=== PATIENT | female | born 1970 | race Two or more races ===

== ENCOUNTER 2019-03-02 07:41 | Inpatient (IN) | payer MEDICAID ==
[~2019-03-02] VITALS: Ht 160 cm; Wt 105.3 kg
[2019-03-02] MEDS ORDERED: AMLO-512 PO (07:51)
[2019-03-02] MEDS ORDERED: SODIUM CHLORIDE 0.9% 1,000 ML IV ONE (08:16)
[2019-03-02] MEDS ORDERED: KETOROLAC TROMETHAMINE 30 MG/ML VIAL IVP ONE (08:30)
[2019-03-02] MEDS ORDERED: ONDANSETRON HCL 4 MG/2 ML VIAL IVP ONE ×2 (08:30→12:00)
[2019-03-02] MEDS ORDERED: BARIUM SULFATE 0.1% SUSPENSION 450 ML BOTTLE PO ONE (08:30)
[2019-03-02 08:36] LABS: BASOPHILS % (AUTO) 0.3 % (0.0-2.0); EOSINOPHILS % (AUTO) 0 % (1.0-6.0); HEMATOCRIT 44.1 % (36-46); LYMPHOCYTES # (AUTO) 0.4 K/uL (1.0-4.8); LYMPHOCYTES % (AUTO) 3.3 % (22.0-44.0); MEAN CORPUSCULAR HEMOGLOBIN 31.5 pg (26.0-34.0); MEAN CORPUSCULAR HGB CONC 33.9 G/dL (31.0-37.0); MEAN CORPUSCULAR VOLUME 93 fL (80-100); MONOCYTES # (AUTO) 0.5 K/uL (0.1-1.0); MONOCYTES % (AUTO) 4.1 % (2.0-9.0); NEUTROPHILS # (AUTO) 11.7 K/uL (1.8-7.7); PLATELET COUNT (AUTO) 217 K/uL (150-450); RED BLOOD CELL COUNT(AUTO) 4.75 MIL/uL (4.00-5.20); RED CELL DISTRIBUTION WIDTH 14.8 % (11.5-14.5)
[2019-03-02 08:38] LABS: NEUTROPHILS % (AUTO) 92.3 % (40.0-70.0)
[2019-03-02 08:42] LABS: ANION GAP 10 mmol/L (8-16); CALCIUM, TOTAL 10.2 mg/dL (8.8-10.5); CARBON DIOXIDE 25 mmol/L (22-29); CHLORIDE 101 mmol/L (98-107); CREATININE 0.95 mg/dL (0.60-1.30); GLOMERULAR FILTR. RATE CALC > 60 mL/min (>60); GLUCOSE,RANDOM 164 mg/dL (70-110); POTASSIUM 3.8 mmol/L (3.5-5.1); SODIUM SERUM 136 mmol/L (136-145); UREA NITROGEN, BLOOD 17 mg/dL (7-18)
[2019-03-02 08:48] LABS: ALANINE AMINOTRANSFERASE 43 U/L (12-78); ALBUMIN 4.2 g/dL (3.4-5.0); ALKALINE PHOSPHATASE 81 U/L (46-116); ASPARTATE AMINOTRANSFERASE 24 U/L (15-37); LIPASE 65 U/L (73-393); TOTAL PROTEIN, SERUM 7.7 g/dL (6.4-8.2)
[2019-03-02 08:52] LABS: APPEARANCE,URINE TURBID (CLEAR); GLUCOSE, URINE (UA) >=1000 mg/dL (NEGATIVE); KETONES,URINE 15 mg/dL (NEGATIVE); LEUKOCYTE ESTERASE ,URINE MODERATE (NEGATIVE); NITRATE,URINE POSITIVE (NEGATIVE); OCCULT BLOOD,URINE LARGE (NEGATIVE); PROTEIN,URINE SEE CONFIRM (NEGATIVE)
[2019-03-02 08:54] LABS: BILIRUBIN,URINE PRELIM. POSITIVE (NEGATIVE)
[2019-03-02 09:30] LABS: RBC,URINE >100 /HPF (0-2); SULFOSALICYLIC ACID,URINE 3+ (Negative)
[2019-03-02 09:31] LABS: BACTERIA,URINE None Seen /HPF (None Seen)
[2019-03-02] MEDS ORDERED: SODIUM CHLORIDE 0.9% 100 ML ONE (10:00)
[2019-03-02] MEDS ORDERED: IOVERSOL 350 MG/ML 100 ML VIAL ONE (10:00)
[2019-03-02] MEDS ORDERED: IOVERSOL 350 MG/ML 150 ML VIAL ONE (10:01)
[2019-03-02] MEDS ORDERED: TAMSULOSIN HCL 0.4 MG CAPSULE PO ONE (12:00)
[2019-03-02] MEDS ORDERED: MORPHINE SULFATE 4 MG/ML SYRINGE IVP ONE (12:00)
[2019-03-02] MEDS ORDERED: CefTRIAXone 1 GM/DEXTROSE 50 ML IV ONE (12:00)
[2019-03-02] MEDS ORDERED: SODIUM CHLORIDE 0.9% 250 ML IV ONE (12:04)
[2019-03-02] MEDS ORDERED: 0.9% SODIUM CHLORIDE 10 ML SYRINGE IVP PRN (13:15)
[2019-03-02] MEDS ORDERED: ONDANSETRON HCL 4 MG/2 ML VIAL IVP PRN ×2 (13:15→20:15)
[2019-03-02] MEDS ORDERED: ACETAMINOPHEN 325 MG TABLET PO PRN (13:15)
[2019-03-02 13:26] LABS: PROTHROMBIN TIME 10.3 SEC (9.4-11.6)
[2019-03-02 14:50] VITALS: BP 103/57
[2019-03-02] MEDS ORDERED: IOHEXOL 240 MG/ML 50 ML VIAL ONE (15:01)
[2019-03-02] MEDS ORDERED: LIDOCAINE/PF 1% 30 ML VIAL ONE (15:02)
[2019-03-02 19:57] VITALS: BP 113/56
[2019-03-02] MEDS ORDERED: IPRATROPIUM BROMIDE 0.5 MG/2.5 ML NEB SOLUTION NEB PRN (20:15)
[2019-03-02] MEDS ORDERED: MAGNESIUM HYDROXIDE SUSPENSION 30 ML UDCUP PO PRN (20:15)
[2019-03-02] MEDS ORDERED: ZOLPIDEM TARTRATE 5 MG TABLET PO PRN (20:15)
[2019-03-02] MEDS ORDERED: BISACODYL 10 MG RECTAL RECTAL SUPPOSITORY PR PRN (20:15)
[2019-03-02] MEDS ORDERED: ALBUTEROL SULFATE 2.5 MG/0.5 ML NEB SOLUTION NEB PRN (20:15)
[2019-03-02] MEDS: DOCUSATE SODIUM 100 MG CAPSULE PO SCH (20:56)
[2019-03-02] MEDS: HYDROCODONE/ACETAMINOPHEN 5-325 MG TABLET PO PRN (20:56)
[2019-03-02] MEDS: SODIUM CHLORIDE 0.9% 1,000 ML IV SCH (22:00)
[2019-03-02] MEDS: HEPARIN SODIUM,PORCINE 5,000 UNITS/ML VIAL SQ SCH (23:32)
[2019-03-03 00:29] VITALS: BP 124/70
[2019-03-03] MEDS: ACETAMINOPHEN 325 MG TABLET PO PRN ×4 (00:36→17:02)
[2019-03-03 03:50] VITALS: BP 126/78
[2019-03-03 06:07] LABS: CALCIUM, TOTAL 8.7 mg/dL (8.8-10.5); CREATININE 1.18 mg/dL (0.60-1.30); POTASSIUM 3.8 mmol/L (3.5-5.1)
[2019-03-03] MEDS: SODIUM CHLORIDE 0.9% 1,000 ML IV SCH ×3 (06:46→21:45)
[2019-03-03 06:55] LABS: BASOPHILS % (AUTO) 0.2 % (0.0-2.0); EOSINOPHILS % (AUTO) 0.1 % (1.0-6.0); HEMATOCRIT 39.7 % (36-46); HEMOGLOBIN 13.5 g/dL (12.0-16.0); LYMPHOCYTES # (AUTO) 0.8 K/uL (1.0-4.8); LYMPHOCYTES % (AUTO) 7.6 % (22.0-44.0); MEAN CORPUSCULAR HGB CONC 33.9 G/dL (31.0-37.0); MEAN CORPUSCULAR VOLUME 94 fL (80-100); MONOCYTES # (AUTO) 0.6 K/uL (0.1-1.0); MONOCYTES % (AUTO) 5.5 % (2.0-9.0); NEUTROPHILS # (AUTO) 9.3 K/uL (1.8-7.7); PLATELET COUNT (AUTO) 169 K/uL (150-450)
[2019-03-03 06:57] LABS: NEUTROPHILS % (AUTO) 86.6 % (40.0-70.0)
[2019-03-03 07:47] VITALS: BP 155/75
[2019-03-03] MEDS: HEPARIN SODIUM,PORCINE 5,000 UNITS/ML VIAL SQ SCH ×3 (08:00→22:48)
[2019-03-03] MEDS: MORPHINE SULFATE 2 MG/ML SYRINGE IVP PRN ×4 (08:13→22:48)
[2019-03-03] MEDS ORDERED: PANTOPRAZOLE SODIUM 40 MG/VIAL IVP SCH (09:00)
[2019-03-03] MEDS: DOCUSATE SODIUM 100 MG CAPSULE PO SCH ×2 (09:00→12:50)
[2019-03-03] MEDS ORDERED: LIDOCAINE/PF 1% 30 ML VIAL ONE (09:39)
[2019-03-03] MEDS ORDERED: IOHEXOL 240 MG/ML 50 ML VIAL ONE (09:41)
[2019-03-03] MEDS: CefTRIAXone 1 GM/DEXTROSE 50 ML IV SCH (10:00)
[2019-03-03] MEDS ORDERED: FentaNYL CITRATE-PF 100 MCG/2 ML VIAL ONE (10:25)
[2019-03-03] MEDS ORDERED: MIDAZOLAM HCL 2 MG/2 ML VIAL ONE (10:25)
[2019-03-03] MEDS ORDERED: FLUMAZENIL 0.1 MG/ML 5 ML VIAL IVP ONE (10:26)
[2019-03-03] MEDS ORDERED: NALOXONE HCL 0.4 MG/ML VIAL ONE (10:26)
[2019-03-03] MEDS ORDERED: FentaNYL CITRATE-PF 100 MCG/2 ML VIAL IVP ONE (10:36)
[2019-03-03] MEDS ORDERED: MIDAZOLAM HCL 2 MG/2 ML VIAL IVP ONE (10:36)
[2019-03-03] MEDS: PANTOPRAZOLE SODIUM 40 MG DR TABLET PO SCH (12:50)
[2019-03-03] MEDS: AmLODIPine BESYLATE 10 MG TABLET PO SCH (12:59)
[2019-03-03] MEDS ORDERED: SODIUM CHLORIDE 0.9% 100 ML ONE (15:19)
[2019-03-03] MEDS ORDERED: IOVERSOL 320 MG/ML 100 ML VIAL ONE (15:19)
[2019-03-03 16:02] VITALS: BP 124/80
[2019-03-03] MEDS: MedroxyPROGESTERone ACET 5 MG TABLET PO SCH (17:02)
[2019-03-03 19:47] VITALS: BP 128/57
[2019-03-03 23:40] VITALS: BP 139/63
[2019-03-03] MEDS: HYDROCODONE/ACETAMINOPHEN 5-325 MG TABLET PO PRN (23:55)
[2019-03-04] MEDS: SODIUM CHLORIDE 0.9% 1,000 ML IV SCH ×4 (03:44→22:57)
[2019-03-04 04:10] VITALS: BP 132/55
[2019-03-04] MEDS: HYDROCODONE/ACETAMINOPHEN 5-325 MG TABLET PO PRN ×3 (04:30→19:59)
[2019-03-04 08:25] VITALS: BP 114/55
[2019-03-04] MEDS: HEPARIN SODIUM,PORCINE 5,000 UNITS/ML VIAL SQ SCH (08:46)
[2019-03-04] MEDS: MedroxyPROGESTERone ACET 5 MG TABLET PO SCH (08:48)
[2019-03-04] MEDS: PANTOPRAZOLE SODIUM 40 MG DR TABLET PO SCH (08:49)
[2019-03-04] MEDS: AmLODIPine BESYLATE 10 MG TABLET PO SCH ×2 (08:49→14:03)
[2019-03-04] MEDS: DOCUSATE SODIUM 100 MG CAPSULE PO SCH ×2 (08:49→19:59)
[2019-03-04 10:16] LABS: BASOPHILS % (AUTO) 0.2 % (0.0-2.0); EOSINOPHILS % (AUTO) 0.1 % (1.0-6.0); HEMATOCRIT 33.7 % (36-46); HEMOGLOBIN 11.5 g/dL (12.0-16.0); LYMPHOCYTES # (AUTO) 0.5 K/uL (1.0-4.8); LYMPHOCYTES % (AUTO) 8.6 % (22.0-44.0); MEAN CORPUSCULAR HEMOGLOBIN 32.2 pg (26.0-34.0); MEAN CORPUSCULAR HGB CONC 34.1 G/dL (31.0-37.0); MEAN CORPUSCULAR VOLUME 94 fL (80-100); MONOCYTES # (AUTO) 0.4 K/uL (0.1-1.0); MONOCYTES % (AUTO) 7.9 % (2.0-9.0); NEUTROPHILS # (AUTO) 4.6 K/uL (1.8-7.7); NEUTROPHILS % (AUTO) 83.2 % (40.0-70.0); PLATELET COUNT (AUTO) 126 K/uL (150-450); RED BLOOD CELL COUNT(AUTO) 3.58 MIL/uL (4.00-5.20); RED CELL DISTRIBUTION WIDTH 14.9 % (11.5-14.5)
[2019-03-04 10:37] LABS: ANION GAP 6 mmol/L (8-16); CALCIUM, TOTAL 9.1 mg/dL (8.8-10.5); CARBON DIOXIDE 28 mmol/L (22-29); CHLORIDE 100 mmol/L (98-107); CREATININE 0.72 mg/dL (0.60-1.30); GLOMERULAR FILTR. RATE CALC > 60 mL/min (>60); GLUCOSE,RANDOM 176 mg/dL (70-110); POTASSIUM 3.4 mmol/L (3.5-5.1); SODIUM SERUM 134 mmol/L (136-145); UREA NITROGEN, BLOOD 14 mg/dL (7-18)
[2019-03-04] MEDS: CefTRIAXone 1 GM/DEXTROSE 50 ML IV SCH (11:25)
[2019-03-04 11:57] VITALS: BP 130/66
[2019-03-04] MEDS ORDERED: POTASSIUM CHL 10 MEQ/WATER 50 ML IV PRN (12:45)
[2019-03-04 12:56] LABS: FREE T4 (FREE THYROXINE) 1.15 ng/dL (0.76-1.46); THYROID STIMULATING HORMONE 0.58 uIU/mL (0.36-3.74)
[2019-03-04 14:00] VITALS: BP 121/70
[2019-03-04] MEDS: POTASSIUM CHLORIDE 20 MEQ ER TABLET PO PRN (14:03)
[2019-03-04] MEDS: ACETAMINOPHEN 325 MG TABLET PO PRN ×2 (14:04→23:30)
[2019-03-04 16:15] VITALS: BP 137/74
[2019-03-04 19:53] VITALS: BP 136/62
[2019-03-05 00:04] VITALS: BP 110/62
[2019-03-05] MEDS: HYDROCODONE/ACETAMINOPHEN 5-325 MG TABLET PO PRN (04:05)
[2019-03-05 04:29] VITALS: BP 139/69
[2019-03-05 05:26] LABS: BASOPHILS % (AUTO) 0.3 % (0.0-2.0); EOSINOPHILS % (AUTO) 0.9 % (1.0-6.0); HEMATOCRIT 32.4 % (36-46); HEMOGLOBIN 11.1 g/dL (12.0-16.0); LYMPHOCYTES # (AUTO) 0.5 K/uL (1.0-4.8); LYMPHOCYTES % (AUTO) 11.1 % (22.0-44.0); MEAN CORPUSCULAR HEMOGLOBIN 32.3 pg (26.0-34.0); MEAN CORPUSCULAR HGB CONC 34.3 G/dL (31.0-37.0); MEAN CORPUSCULAR VOLUME 94 fL (80-100); MONOCYTES # (AUTO) 0.6 K/uL (0.1-1.0); MONOCYTES % (AUTO) 11.7 % (2.0-9.0); NEUTROPHILS # (AUTO) 3.7 K/uL (1.8-7.7); PLATELET COUNT (AUTO) 128 K/uL (150-450); RED BLOOD CELL COUNT(AUTO) 3.44 MIL/uL (4.00-5.20)
[2019-03-05 05:46] LABS: ANION GAP 7 mmol/L (8-16); CARBON DIOXIDE 26 mmol/L (22-29); CHLORIDE 101 mmol/L (98-107); CREATININE 0.57 mg/dL (0.60-1.30); GLOMERULAR FILTR. RATE CALC > 60 mL/min (>60); GLUCOSE,RANDOM 123 mg/dL (70-110); POTASSIUM 3.4 mmol/L (3.5-5.1); SODIUM SERUM 134 mmol/L (136-145); UREA NITROGEN, BLOOD 10 mg/dL (7-18)
[2019-03-05 08:42] VITALS: BP 114/72
[2019-03-05] MEDS: MedroxyPROGESTERone ACET 5 MG TABLET PO SCH (09:56)
[2019-03-05] MEDS: DOCUSATE SODIUM 100 MG CAPSULE PO SCH ×2 (09:56→21:00)
[2019-03-05] MEDS: AmLODIPine BESYLATE 10 MG TABLET PO SCH (09:56)
[2019-03-05] MEDS: CefTRIAXone 1 GM/DEXTROSE 50 ML IV SCH (09:56)
[2019-03-05] MEDS: PANTOPRAZOLE SODIUM 40 MG DR TABLET PO SCH (09:56)
[2019-03-05] MEDS: SODIUM CHLORIDE 0.9% 1,000 ML IV SCH ×2 (10:02→23:35)
[2019-03-05] MEDS: ACETAMINOPHEN 325 MG TABLET PO PRN ×2 (11:57→20:54)
[2019-03-05 12:21] VITALS: BP 140/66
[2019-03-05 16:49] VITALS: BP 109/62
[2019-03-05] MEDS: POTASSIUM CHLORIDE 20 MEQ ER TABLET PO PRN (18:03)
[2019-03-05] MEDS ORDERED: SODIUM CHLORIDE 0.9% 100 ML ONE (18:52)
[2019-03-05] MEDS ORDERED: IOVERSOL 350 MG/ML 150 ML VIAL ONE (18:52)
[2019-03-05] MEDS ORDERED: BARIUM SULFATE 0.1% SUSPENSION 450 ML BOTTLE ONE (19:09)
[2019-03-05] MEDS: PIPERACILLIN/TAZO 3.375 GM/D5W 50 ML IV SCH (19:42)
[2019-03-05] MEDS ORDERED: VANCOMYCIN HCL 1 GM/D5% WATER 200 ML IV SCH (20:00)
[2019-03-05 20:05] VITALS: BP 121/61
[2019-03-05] MEDS: CIPROFLOXACIN HCL 500 MG TABLET PO SCH (23:35)
[2019-03-06] VITALS (7 sets, daily range): BP systolic 106–128; BP diastolic 63–74
[2019-03-06] MEDS: PIPERACILLIN/TAZO 3.375 GM/D5W 50 ML IV SCH ×2 (01:15→07:06)
[2019-03-06] MEDS: ACETAMINOPHEN 325 MG TABLET PO PRN (03:34)
[2019-03-06 08:20] LABS: BASOPHILS % (AUTO) 0.3 % (0.0-2.0); EOSINOPHILS % (AUTO) 1.4 % (1.0-6.0); HEMOGLOBIN 10.9 g/dL (12.0-16.0); LYMPHOCYTES # (AUTO) 0.9 K/uL (1.0-4.8); LYMPHOCYTES % (AUTO) 25.6 % (22.0-44.0); MEAN CORPUSCULAR HEMOGLOBIN 31.9 pg (26.0-34.0); MEAN CORPUSCULAR HGB CONC 34.1 G/dL (31.0-37.0); MEAN CORPUSCULAR VOLUME 94 fL (80-100); MONOCYTES # (AUTO) 0.6 K/uL (0.1-1.0); MONOCYTES % (AUTO) 15.1 % (2.0-9.0); NEUTROPHILS # (AUTO) 2.1 K/uL (1.8-7.7); NEUTROPHILS % (AUTO) 57.6 % (40.0-70.0); PLATELET COUNT (AUTO) 165 K/uL (150-450); RED BLOOD CELL COUNT(AUTO) 3.41 MIL/uL (4.00-5.20); RED CELL DISTRIBUTION WIDTH 14.8 % (11.5-14.5)
[2019-03-06] MEDS: MedroxyPROGESTERone ACET 5 MG TABLET PO SCH (08:31)
[2019-03-06] MEDS: PANTOPRAZOLE SODIUM 40 MG DR TABLET PO SCH (08:32)
[2019-03-06] MEDS: CIPROFLOXACIN HCL 500 MG TABLET PO SCH (08:32)
[2019-03-06] MEDS: DOCUSATE SODIUM 100 MG CAPSULE PO SCH ×2 (08:32→20:32)
[2019-03-06] MEDS: AmLODIPine BESYLATE 10 MG TABLET PO SCH (08:32)
[2019-03-06] MEDS: HYDROCODONE/ACETAMINOPHEN 5-325 MG TABLET PO PRN ×2 (08:34→20:32)
[2019-03-06 08:41] LABS: ANION GAP 7 mmol/L (8-16); CARBON DIOXIDE 27 mmol/L (22-29); CHLORIDE 102 mmol/L (98-107); GLUCOSE,RANDOM 111 mg/dL (70-110); POTASSIUM 3.7 mmol/L (3.5-5.1); SODIUM SERUM 136 mmol/L (136-145); UREA NITROGEN, BLOOD 9 mg/dL (7-18)
[2019-03-06 08:42] LABS: ALANINE AMINOTRANSFERASE 19 U/L (12-78); ALBUMIN 2.4 g/dL (3.4-5.0); ALKALINE PHOSPHATASE 45 U/L (46-116); ASPARTATE AMINOTRANSFERASE 12 U/L (15-37); BILIRUBIN,TOTAL 0.3 mg/dL (0.1-1.0); CALCIUM, TOTAL 8.9 mg/dL (8.8-10.5); CREATININE 0.61 mg/dL (0.60-1.30); GLOMERULAR FILTR. RATE CALC > 60 mL/min (>60); TOTAL PROTEIN, SERUM 5.9 g/dL (6.4-8.2)
[2019-03-06] MEDS: SULFAMETHOX/TRIMETH DS 800-160 MG/TABLET PO SCH ×2 (09:25→20:31)
[2019-03-06] MEDS: CefoTEtan DISOD 1 GM/DEXTROSE 50 ML IV SCH ×2 (09:25→20:31)
[2019-03-06] MEDS: SODIUM CHLORIDE 0.9% 1,000 ML IV SCH (17:11)
[2019-03-07 03:50] VITALS: BP 132/72
[2019-03-07 05:38] LABS: BASOPHILS % (AUTO) 0.5 % (0.0-2.0); HEMATOCRIT 33.3 % (36-46); HEMOGLOBIN 11.2 g/dL (12.0-16.0); LYMPHOCYTES # (AUTO) 1.4 K/uL (1.0-4.8); LYMPHOCYTES % (AUTO) 29.4 % (22.0-44.0); MEAN CORPUSCULAR HEMOGLOBIN 31.9 pg (26.0-34.0); MEAN CORPUSCULAR HGB CONC 33.8 G/dL (31.0-37.0); MEAN CORPUSCULAR VOLUME 95 fL (80-100); MONOCYTES # (AUTO) 0.6 K/uL (0.1-1.0); MONOCYTES % (AUTO) 11.9 % (2.0-9.0); NEUTROPHILS # (AUTO) 2.6 K/uL (1.8-7.7); NEUTROPHILS % (AUTO) 56.2 % (40.0-70.0); PLATELET COUNT (AUTO) 211 K/uL (150-450); RED BLOOD CELL COUNT(AUTO) 3.53 MIL/uL (4.00-5.20); RED CELL DISTRIBUTION WIDTH 15.3 % (11.5-14.5)
[2019-03-07 05:56] LABS: ALANINE AMINOTRANSFERASE 21 U/L (12-78); ALBUMIN 2.6 g/dL (3.4-5.0); ALKALINE PHOSPHATASE 53 U/L (46-116); ANION GAP 9 mmol/L (8-16); ASPARTATE AMINOTRANSFERASE 15 U/L (15-37); BILIRUBIN,TOTAL 0.3 mg/dL (0.1-1.0); CALCIUM, TOTAL 9.7 mg/dL (8.8-10.5); CARBON DIOXIDE 24 mmol/L (22-29); CHLORIDE 103 mmol/L (98-107); CREATININE 0.67 mg/dL (0.60-1.30); GLOMERULAR FILTR. RATE CALC > 60 mL/min (>60); GLUCOSE,RANDOM 101 mg/dL (70-110); POTASSIUM 3.7 mmol/L (3.5-5.1); SODIUM SERUM 136 mmol/L (136-145); TOTAL PROTEIN, SERUM 6.3 g/dL (6.4-8.2); UREA NITROGEN, BLOOD 9 mg/dL (7-18)
[2019-03-07 07:40] VITALS: BP 145/76
[2019-03-07] MEDS: MedroxyPROGESTERone ACET 5 MG TABLET PO SCH (08:27)
[2019-03-07] MEDS: DOCUSATE SODIUM 100 MG CAPSULE PO SCH ×2 (08:27→20:02)
[2019-03-07] MEDS: SULFAMETHOX/TRIMETH DS 800-160 MG/TABLET PO SCH ×2 (08:27→20:02)
[2019-03-07] MEDS: AmLODIPine BESYLATE 10 MG TABLET PO SCH (08:27)
[2019-03-07] MEDS: CefoTEtan DISOD 1 GM/DEXTROSE 50 ML IV SCH ×2 (08:27→20:02)
[2019-03-07] MEDS: PANTOPRAZOLE SODIUM 40 MG DR TABLET PO SCH (08:27)
[2019-03-07 11:20] VITALS: BP 146/72
[2019-03-07] MEDS: SODIUM CHLORIDE 0.9% 1,000 ML IV SCH ×2 (12:48→20:02)
[2019-03-07 15:29] VITALS: BP 109/68
[2019-03-07 19:21] VITALS: BP 120/65
[2019-03-07] MEDS: ACETAMINOPHEN 325 MG TABLET PO PRN (20:02)
[2019-03-08 00:37] VITALS: BP 125/64
[2019-03-08] MEDS: SODIUM CHLORIDE 0.9% 1,000 ML IV SCH ×2 (04:09→15:42)
[2019-03-08 05:29] VITALS: BP 124/77
[2019-03-08 05:32] LABS: BASOPHILS % (AUTO) 0.3 % (0.0-2.0); EOSINOPHILS % (AUTO) 2.1 % (1.0-6.0); HEMATOCRIT 32.7 % (36-46); HEMOGLOBIN 11.2 g/dL (12.0-16.0); LYMPHOCYTES # (AUTO) 1.3 K/uL (1.0-4.8); MEAN CORPUSCULAR HEMOGLOBIN 32.7 pg (26.0-34.0); MEAN CORPUSCULAR HGB CONC 34.2 G/dL (31.0-37.0); MEAN CORPUSCULAR VOLUME 96 fL (80-100); MONOCYTES # (AUTO) 0.5 K/uL (0.1-1.0); NEUTROPHILS # (AUTO) 3.9 K/uL (1.8-7.7); NEUTROPHILS % (AUTO) 66.6 % (40.0-70.0); PLATELET COUNT (AUTO) 263 K/uL (150-450); RED BLOOD CELL COUNT(AUTO) 3.42 MIL/uL (4.00-5.20); RED CELL DISTRIBUTION WIDTH 15.3 % (11.5-14.5)
[2019-03-08 05:46] LABS: ALANINE AMINOTRANSFERASE 22 U/L (12-78); ALBUMIN 2.6 g/dL (3.4-5.0); ALKALINE PHOSPHATASE 53 U/L (46-116); ANION GAP 8 mmol/L (8-16); ASPARTATE AMINOTRANSFERASE 14 U/L (15-37); BILIRUBIN,TOTAL 0.2 mg/dL (0.1-1.0); CALCIUM, TOTAL 9.3 mg/dL (8.8-10.5); CARBON DIOXIDE 26 mmol/L (22-29); CHLORIDE 105 mmol/L (98-107); CREATININE 0.62 mg/dL (0.60-1.30); GLOMERULAR FILTR. RATE CALC > 60 mL/min (>60); GLUCOSE,RANDOM 108 mg/dL (70-110); POTASSIUM 3.8 mmol/L (3.5-5.1); SODIUM SERUM 139 mmol/L (136-145); TOTAL PROTEIN, SERUM 6.1 g/dL (6.4-8.2); UREA NITROGEN, BLOOD 8 mg/dL (7-18)
[2019-03-08 07:14] LABS: PLATELET MORPHOLOGY COMMENT LARGE PLTS PRESENT
[2019-03-08 07:54] VITALS: BP 127/70
[2019-03-08] MEDS: PANTOPRAZOLE SODIUM 40 MG DR TABLET PO SCH (08:14)
[2019-03-08] MEDS: SULFAMETHOX/TRIMETH DS 800-160 MG/TABLET PO SCH ×2 (08:14→20:24)
[2019-03-08] MEDS: MedroxyPROGESTERone ACET 5 MG TABLET PO SCH (08:14)
[2019-03-08] MEDS: AmLODIPine BESYLATE 10 MG TABLET PO SCH (08:16)
[2019-03-08] MEDS: DOCUSATE SODIUM 100 MG CAPSULE PO SCH ×2 (08:16→20:24)
[2019-03-08] MEDS: CefoTEtan DISOD 1 GM/DEXTROSE 50 ML IV SCH (08:16)
[2019-03-08 12:24] VITALS: BP 125/70
[2019-03-08] MEDS ORDERED: IOHEXOL 240 MG/ML 50 ML VIAL ONE (15:15)
[2019-03-08 15:47] VITALS: BP 110/65
[2019-03-08] MEDS ORDERED: LIDOCAINE/PF 1% 30 ML VIAL ONE (15:51)
[2019-03-08] MEDS ORDERED: SODIUM BICARBONATE 50 MEQ/50 ML VIAL ONE (15:51)
[2019-03-08] MEDS ORDERED: 0.9% SODIUM CHLORIDE 10 ML SYRINGE IVP ONE (16:33)
[2019-03-08] MEDS ORDERED: FentaNYL CITRATE-PF 100 MCG/2 ML VIAL ONE (16:38)
[2019-03-08] MEDS ORDERED: MIDAZOLAM HCL 2 MG/2 ML VIAL ONE (16:38)
[2019-03-08] MEDS ORDERED: PROV5 PO (19:50)
[2019-03-08] MEDS ORDERED: SULF1TAB42 PO (19:51)
[2019-03-08 20:45] VITALS: BP 124/69
== END 2019-03-08 21:05 | disposition home or self-care (01) | DRG 720 ==
LOC: EMS 07:43 → 5N 14:04 → 4E 03-05 07:47
PROVIDERS: ADMIT Hospitalist; ATTEND Hospitalist
PROC: 0T9330Z Drainage of Right Kidney Pelvis with Drainage Device, Percutaneous Approach (ICD-10-PCS; principal; 2019-03-03)
PROC: BT111ZZ Fluoroscopy of Right Kidney using Low Osmolar Contrast (ICD-10-PCS; 2019-03-08)
PROC: 0TP5X0Z Removal of Drainage Device from Kidney, External Approach (ICD-10-PCS; 2019-03-08)
DX: A41.51 Sepsis due to Escherichia coli [E. coli] (principal); E66.01 Morbid (severe) obesity due to excess calories; K76.0 Fatty (change of) liver, not elsewhere classified; N28.1 Cyst of kidney, acquired; N13.6 Pyonephrosis; D25.9 Leiomyoma of uterus, unspecified; B96.20 Unspecified Escherichia coli [E. coli] as the cause of diseases classified elsewhere; K21.9 Gastro-esophageal reflux disease without esophagitis; Z16.12 Extended spectrum beta lactamase (ESBL) resistance; E01.0 Iodine-deficiency related diffuse (endemic) goiter; K57.30 Diverticulosis of large intestine without perforation or abscess without bleeding; B96.89 Other specified bacterial agents as the cause of diseases classified elsewhere; D64.9 Anemia, unspecified; I10 Essential (primary) hypertension; E87.6 Hypokalemia; Z79.899 Other long term (current) drug therapy; Z80.9 Family history of malignant neoplasm, unspecified; Z82.49 Family history of ischemic heart disease and other diseases of the circulatory system; Z68.41 Body mass index [BMI] 40.0-44.9, adult; Z98.891 History of uterine scar from previous surgery
CPT/HCPCS: 50430; 50432; 71260; 74177; 75989; 76000; 76536; 76856; 76937; 83036; 84132; 84439; 84443; 87040; 87070; 87081; 87086; 87205; 96374; 96375; G0378; J0696; J1644; J1885; J2250; J2270; J2310; J2405; J2543; J3010; J3370; J3490; J7030; J7050; Q9966